=== PATIENT | male | born 1970 | race Caucasian/White ===

== ENCOUNTER 2019-11-25 15:58 | Emergency (ER) | payer MEDICAID ==
[~2019-11-25] VITALS: Ht 170.2 cm; Wt 98.1 kg
[2019-11-25 16:00] VITALS: BP 132/90
--- NOTE | 2019-11-25 16:26 | NUR ---
PT to room from lobby.
[2019-11-25] MEDS ORDERED: CLINDAMYCIN 300 MG CAPSULE PO ONE (17:00)
[2019-11-25] MEDS ORDERED: CLINDAMYCIN 300 MG CAPSULE ONE (17:24)
[2019-11-25] MEDS ORDERED: IBUPROFEN 600 MG TABLET ONE (17:24)
[2019-11-25] MEDS ORDERED: ACETAMINOPHEN 325 MG TABLET ONE (17:24)
--- NOTE | 2019-11-25 17:27 | NUR ---
MEDS ADMIN PER AUG. OK TO GIVE TYLENOL PO, PER PROVIDER.
[2019-11-25] MEDS ORDERED: ACETAMINOPHEN 650 MG SUPP PR ONE (17:30)
[2019-11-25] MEDS ORDERED: ACETAMINOPHEN 325 MG TABLET PO ONE (17:30)
[2019-11-25] MEDS ORDERED: IBUPROFEN 600 MG TABLET PO ONE (17:30)
== END 2019-11-25 17:32 | disposition home or self-care (01) ==
LOC: ED 17:21
DX: K04.7 Periapical abscess without sinus (principal); F17.200 Nicotine dependence, unspecified, uncomplicated
CPT/HCPCS: 99284

== ENCOUNTER 2021-02-16 19:36 | Emergency (ER) | payer MEDICAID ==
[~2021-02-16] VITALS: Ht 170.2 cm; Wt 80.0 kg
[2021-02-16 19:43] VITALS: BP 166/86
[2021-02-16] MEDS ORDERED: PROPARACAINE OPHTH 0.5%, 15ML EACHEYE ONE (22:00)
[2021-02-16] MEDS ORDERED: FLUORESCEIN OPHTHALMIC 1 MG STRIP EACHEYE ONE (22:00)
[2021-02-16] MEDS ORDERED: PLEASE ENTER HEIGHT AND WEIGHT MC SCH (22:00)
[2021-02-16] MEDS ORDERED: PROPARACAINE OPHTH 0.5%, 15ML ONE (23:36)
[2021-02-16] MEDS ORDERED: FLUORESCEIN OPHTHALMIC 1 MG STRIP ONE (23:36)
--- NOTE | 2021-02-17 00:04 | NUR ---
TASK RN, PT REPORTS FEELING MUCH BETTER AFTER EYE IRRIGATION
--- NOTE | 2021-02-17 00:04 | NUR ---
Patient given discharge instructions and they have confirmed that they understand the instructions. Patient ambulatory with steady gait. NAD, all questions answered appropriately, denies additional needs at this time. No personal belongings left in room after discharge.
== END 2021-02-17 00:05 | disposition home or self-care (01) ==
LOC: ED 20:00
DX: S05.02XA Injury of conjunctiva and corneal abrasion without foreign body, left eye, initial encounter (principal); F17.200 Nicotine dependence, unspecified, uncomplicated; X58.XXXA Exposure to other specified factors, initial encounter; Y93.89 Activity, other specified; Y92.89 Other specified places as the place of occurrence of the external cause; Y99.8 Other external cause status
CPT/HCPCS: 99283